=== PATIENT | male | born 1950 | race Two or more races ===

== ENCOUNTER 2019-11-27 06:00 | Outpatient (CLI) | payer OTHER ==
[~2019-11-27] VITALS: Ht 182.9 cm; Wt 113.4 kg
[~2019-11-27 06:00] MED LIST: HYZAAR 100-121 UDTAB PO
[2019-11-27] MEDS ORDERED: ATORVAST PO (10:05)
[2019-11-27] MEDS ORDERED: METFORMIN PO (10:06)
[2019-11-27] MEDS ORDERED: AMLODI PO (10:06)
[2019-11-27] MEDS ORDERED: HYDROCH PO (10:07)
== END 2019-11-27 06:05 | disposition home or self-care (01) ==
LOC: LAB 06:00 → EDSTATUS 08:00 → ADM 08:00 → SURH 12-04 07:00 → EDSTATUS 12-04 08:00 → SURH 12-04 08:00
PROVIDERS: ATTEND Orthopaedic Surgery Sports Medicine
DX: M17.11 Unilateral primary osteoarthritis, right knee (principal); Z20.828 Contact with and (suspected) exposure to other viral communicable diseases; Z01.810 Encounter for preprocedural cardiovascular examination

== ENCOUNTER 2021-08-28 07:30 | Inpatient (IN) | payer OTHER ==
[~2021-08-28] VITALS: Ht 180.3 cm; Wt 113.4 kg
[~2021-08-28 07:30] MED LIST changes: +AMLODI PO; +ATORVAST PO; +HYDROCH PO; +METFORMIN PO
[2021-08-28] MEDS ORDERED: ATORVASTAT PO (09:01)
[2021-08-28] MEDS ORDERED: GLUMETZA500 MG PO (09:01)
[2021-08-28] MEDS ORDERED: METOPROL PO (09:02)
[2021-09-02] MEDS ORDERED: ATORVASTATIN CA20 MG (10:24)
[2021-09-02] MEDS ORDERED: AMLODIPINE BESYL5 MG (10:24)
[2021-09-02] MEDS ORDERED: METOPROLOL SUC100 MG (10:25)
[2021-09-02] MEDS ORDERED: HYDROCHLOROTH12.5 MG (10:25)
[2021-09-04] MEDS ORDERED: LOVENOX30 MG/0.3 SUBCUTANEO (11:35)
[2021-09-04] MEDS ORDERED: NORFLEX100MG PO (11:35)
[2021-09-04] MEDS ORDERED: PERCOCET 5-3251 EACH PO (11:35)
[2021-09-04] MEDS ORDERED: GABAPENTIN100 MG PO (11:35)
== END 2021-09-04 19:24 | disposition home or self-care (01) | DRG 470 ==
LOC: O/R 09-02 05:45 → SURH 09-02 05:45
PROVIDERS: ADMIT Orthopaedic Surgery; ATTEND Orthopaedic Surgery
PROC: 0SRC0J9 Replacement of Right Knee Joint with Synthetic Substitute, Cemented, Open Approach (ICD-10-PCS; principal; 2021-09-02 07:00)
DX: M17.11 Unilateral primary osteoarthritis, right knee (principal); D62 Acute posthemorrhagic anemia; M85.661 Other cyst of bone, right lower leg; I10 Essential (primary) hypertension; E11.9 Type 2 diabetes mellitus without complications; Z79.4 Long term (current) use of insulin; Z20.822 Contact with and (suspected) exposure to COVID-19